=== PATIENT | male | born 1990 | race American Indian/Alaskan Native ===

== ENCOUNTER 2020-03-04 23:59 | Emergency (ER) | payer OTHER ==
[2020-03-05 00:21] LABS: BILIRUBIN,URINE NEGATIVE (NEGATIVE); GLUCOSE, URINE (UA) NEGATIVE (NEGATIVE); KETONES,URINE (UA) NEGATIVE (NEGATIVE); LEUKOCYTE ESTERASE, URINE NEGATIVE (NEGATIVE); NITRITE,URINE NEGATIVE (NEGATIVE); OCCULT BLOOD,URINE NEGATIVE (NEGATIVE); PROTEIN,URINE NEGATIVE (NEGATIVE); UROBILINOGEN,URINE 0.2 (NORMAL) E.U./dL (NORMAL)
[2020-03-05 00:23] LABS: CLARITY,URINE CLEAR (CLEAR)
--- NOTE | 2020-03-05 04:01 | ED Physician Documentation ---
PD HPI MALE - Stated complaint Stated Complaint: MALE , RT TESTICLE PX - Chief complaint Chief Complaint: Abd Pain - History obtained from History obtained from: Patient - History of Present Illness Timing - onset: How many days ago (3) Timing - duration: Days (3) Timing - details: Gradual onset, Still present, Waxing and waning Associated symptoms: Testiclar pain. No: Dysuria, Urinary frequency, Discharge, Genital sore / lesion PD HPI MALE CONTRIB FACTORS: Other ( believes monogamus) Similar symptoms before: No diagnosis Recently seen: Not recently seen - Additional information Additional information: 29-year-old male has developed some right testicular pain after skateboarding and this seemed to get better when he stopped the skateboarding and then when he went skateboarding again it came back. He has pain this evening that is now improved with rest and he is concerned because he has had something similar to this previously and he was afraid he might have testicular cancer. He has not had imaging done. He does not have abnormality of mass to his testicle.He does not feel that he is at risk for STD and he states that he has had this once previously again related to skateboarding and this resolved. Review of Systems Constitutional: denies: Fever Eyes: denies: Decreased vision Ears: denies: Ear pain Nose: denies: Congestion Throat: denies: Sore throat Cardiac: denies: Chest pain / pressure, Palpitations Respiratory: denies: Dyspnea, Cough GI: denies: Abdominal Pain, Nausea, Vomiting : reports: Testicular pain. denies: Dysuria, Frequency, Testicular mass Skin: denies: Rash Musculoskeletal: denies: Neck pain, Back pain, Extremity pain PD PAST MEDICAL HISTORY - Allergies Allergies/Adverse Reactions: Allergies Allergy/AdvReac Type Severity Reaction Status Date / Time Corticosteroids AdvReac Unknown Verified 03/05/20 00:07 (Glucocorticoids) PD ED PE NORMAL - Vitals Vital signs reviewed: Yes (hypertensive ) - General General: Alert and oriented X 3, No acute distress, Well developed/nourished - HEENT HEENT: Atraumatic, PERRL, EOMI - Respiratory Respiratory: No respiratory distress - Male Male : Other (Right testicle with minimal tenderness with tenderness into the inguinal canal that is mild. There are no palpable masses and the epidydimis is non-tender now. No discharge and no sores or leasions. 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, No motor deficit, No sensory deficit, Normal speech Eye Opening: Spontaneous Motor: Obeys Commands Verbal: Oriented GCS Score: 15 - Psych Psych: Normal mood, Normal affect Results - Vitals Vitals: Vital Signs - 24 hr 03/05/20 03/05/20 03/05/20 00:03 04:30 04:31 Temperature 36.7 C 36.7 C 36.7 C Heart Rate 70 71 71 Respiratory 16 16 16 Rate Blood Pressure 158/83 H 144/80 H 144/80 H O2 Saturation 100 100 100 Oxygen O2 Source Room air - Labs Labs: Laboratory Tests 03/05/20 00:16 Urine Color YELLOW Urine Clarity CLEAR Urine pH 6.0 Ur Specific [place] 1.010 Urine Protein NEGATIVE Urine Glucose (UA) NEGATIVE Urine Ketones NEGATIVE Urine Occult Blood NEGATIVE Urine Nitrite NEGATIVE Urine Bilirubin NEGATIVE Urine Urobilinogen 0.2 (NORMAL) Ur Leukocyte Esterase NEGATIVE Ur Microscopic Review NOT INDICATED Urine Culture Comments NOT INDICATED - Rads (name of study) testiclular ultrasound Radiology: Prelim report reviewed (Impression: 1. No evidence of testicular torsion. 2. Small right epididymal cyst. 3. Small, reducible fat-containing right inguinal hernia.), EMP read indepedently, See rad report PD MEDICAL DECISION MAKING - ED course Complexity details: reviewed results, re-evaluated patient, considered differential, d/w patient ED course: 29-year-old male with right testicular pain that appears to be related to physical activity has improvement in his pain after rest in the emergency department and he does appear to be concerned about the possibility of testicular cancer a ultrasound of the testicles was performed without evidence of abnormality there is a right inguinal hernia that slides in and out with valsalva. He is given instructions on hernia and a referral to surgery. Departure - Departure Disposition: 01 Home, Self Care Clinical Impression: Right inguinal hernia Condition: Stable Instructions: ED Hernia Inguinal Follow-Up: Dilip De León MD [Provider Admit Priv/Credential] - Discharge Date/Time: 03/05/20 04:35
[2020-03-05 04:31] VITALS: BP 144/80
--- NOTE | 2020-03-05 09:34 | Ultrasound Report ---
PROCEDURE: Testicle INDICATIONS: RT TESTICLE PAIN TECHNIQUE: Real-time scanning was performed of the scrotum and testicles, with image documentation. Color and p ulse Doppler interrogation was performed of both testicles. COMPARISON: None. FINDINGS: Right: Testicle is normal in size at 5.3 x 2.5 x 3.2 cm, and homogenous in echotexture. Epididymis is normal in overall. There is a right epididymal cyst measuring 4 mm. No hydrocele or varicoceles. Overlying scrotal skin is normal in thickness. There is a reducible fat-containing right inguinal he rnia with a neck diameter of 5 mm. Left: Testicle is normal in size at 4.9 x 2.5 x 3.2 cm, and homogeneous in echotexture. Epididymis is normal in overall size and morphology. No hydrocele or varicoceles. Overlying scrotal skin is no rmal in thickness. Doppler: Color and pulse Doppler demonstrate normal and symmetric arterial flow in both testicles. IMPRESSION: 1. Negative evaluation of the testes. 2. Small reducible fat-containing right internal hernia. 3. Concordant with preliminary interpretation. Reviewed by: Elizabeth Camejo MD on 03/05/2020 9:32 AM PST Approved by: Elizabeth Camejo MD on 03/05/2020 9:32 AM PST Station ID: [id number]
== END 2020-03-05 04:35 | disposition home or self-care (01) ==
LOC: ED 23:59
DX: K40.90 Unilateral inguinal hernia, without obstruction or gangrene, not specified as recurrent (principal); N50.3 Cyst of epididymis
CPT/HCPCS: 76870; 81001; 81003; 87086; 87491; 87591; 87661; 99284

== ENCOUNTER 2023-06-18 14:35 | Outpatient (CLI) | payer OTHER ==
--- NOTE | 2023-06-18 18:31 | MRI Report ---
PROCEDURE: Lumbar Spine WO INDICATIONS: LUMBAGO TECHNIQUE: Noncontrast sagittal T1 spin echo and T2 fast echo, sagittal STIR, axial T1 and T2 fast spin echo thr ough the lumbar spine. In cases with scoliosis, additional coronal T2 fast spin echo may be performe d. COMPARISON: None. FINDINGS: Image quality: diagnostic Diagnostic, with note made of motion artifact. Alignment and Curvature: There is normal bony alignment. Bone Marrow: Marrow is of normal overall signal. No acute vertebral body compression fractures. Spinal Cord: Conus medullaris terminates at the L1 level. Visualized cord demonstrates normal signa l and size. Paraspinous Soft Tissues: No paravertebral masses. Incidental note is made of a circumaortic left renal vein. T12-L1: Normal in appearance. L1-L2: Normal in appearance. L2-L3: Normal in appearance. L3-L4: Normal in appearance. L4-L5: Mild loss of disc height and disc signal are seen. Moderate disc bulge is seen at this leve l. There is a superimposed central/right disc protrusion. Note is made of an annular fissure posterio rly. Moderate facet hypertrophy is seen. There is mild to moderate left-sided and moderate right-lilia ed neuroforaminal narrowing. Mild central canal narrowing is seen. L5-S1: Mild loss of disc height and disc signal are seen. Mild to moderate disc bulge is seen, with a central disc osteophyte protrusion. There is an extruded disc fragment seen within the right subar ticular region that continues into the right neural foramen, as on series 6 image 40 and on series 4 image 6 that measures up to 11 mm. Moderate facet hypertrophy is seen. There is moderate to severe right-sided neuroforaminal narrowing, with a degree of compression upon the exiting right L5 nerve ro ot. There is moderate left-sided neuroforaminal narrowing. Mild central canal narrowing is seen. IMPRESSION: Premature lower lumbar spine degenerative changes are seen, including a right-sided disc extrusion in volving the right subarticular region and the right neural foramen, with moderate to severe right-lilia ed neuroforaminal narrowing. Reviewed by: Justin Terrell MD on 06/18/2023 5:30 PM [place] Approved by: Justin Terrell MD on 06/18/2023 5:30 PM [place] Station ID: [id number]
== END 2023-06-18 14:36 | disposition home or self-care (01) ==
LOC: DI 14:35
PROVIDERS: ATTEND Student in an Organized Health Care Education/Training Program
DX: M51.36 Other intervertebral disc degeneration, lumbar region (principal); M48.061 Spinal stenosis, lumbar region without neurogenic claudication; M47.816 Spondylosis without myelopathy or radiculopathy, lumbar region; M51.26 Other intervertebral disc displacement, lumbar region; M51.27 Other intervertebral disc displacement, lumbosacral region; M47.817 Spondylosis without myelopathy or radiculopathy, lumbosacral region; M47.27 Other spondylosis with radiculopathy, lumbosacral region; M48.07 Spinal stenosis, lumbosacral region; M51.17 Intervertebral disc disorders with radiculopathy, lumbosacral region